=== PATIENT | female | born 1935 | race Caucasian/White ===

== ENCOUNTER 2018-12-18 15:17 | Inpatient (IN) ==
--- NOTE | 2018-12-18 16:05 | Diag Imaging Result Doc PS360 ---
EXAM: CT HEAD W/O CONTRAST 12/18/2018 HISTORY: head injury TECHNIQUE: This exam was performed using automated exposure control, adjustment of mA or kV according to patient size, and/or use of iterative reconstruction technique. COMMENT: There are patchy lucencies in the subcortical and periventricular white matter bilaterally. There is no evidence of mass effect, bleed, or abnormal extra-axial fluid collection. Compared to 11/24/2017 the appearance the brain has not changed significantly. There is blood throughout the right maxillary sinus with fractures of the floor of the orbit as well as the lateral posterior wall of the sinus. The zygomatic arch is intact. There is soft tissue swelling superficial to the right orbit. IMPRESSION: No evidence of acute intracranial disease. Chronic microvascular ischemic white matter changes. Fracture of the right orbital floor and lateral maxilla as described above. Electronically signed by Chi Dash 12/18/2018 4:03 PM
--- NOTE | 2018-12-18 16:07 | Diag Imaging Result Doc PS360 ---
EXAM: CT ORBIT W/O CONTRAST 12/18/2018 HISTORY: injury TECHNIQUE: This exam was performed using automated exposure control, adjustment of mA or kV according to patient size, and/or use of iterative reconstruction technique. COMMENT: There is some mucosal thickening in the ethmoid air cells particularly anteriorly on the right as well as the sphenoid sinuses particularly on the left. There is a comminuted fracture of the right orbital floor. There is a fracture of the medial wall of the right maxillary sinus just posterior to the nasal lacrimal duct. There is a fracture of the lateral wall of the sinus is well. The zygomatic arches are intact. The visualized portions of the mandible and pterygoid processes are intact. There is superficial soft tissue swelling over the right orbit but no evidence of intraorbital mass or fluid collection is present. The inferior rectus muscle is not apparently herniated into the fracture defect. IMPRESSION: Maxillary fractures on the right as described. Electronically signed by Chi Dash 12/18/2018 4:05 PM
--- NOTE | 2018-12-18 16:29 | PROVIDER DOCUMENTATION ---
HPI-EENT General - General Chief Complaint: Head Injury Stated Complaint: FALL Time Seen by Provider: 12/18/18 15:48 Source: family, EMS Allergies/Adverse Reactions: Patient Allergies Allergy/AdvReac Type Severity Reaction Status Date / Time No Known Allergies Allergy Verified 12/18/18 15:37 Home Medications: Home Medication List Medication Instructions Recorded Confirmed Last Taken Type Levothyroxine [Synthroid] 50 microgm PO DAILY 10/18/13 12/18/18 12/18/18 History Acetaminophen 500 mg PO TID 11/24/17 12/18/18 12/18/18 History Amlodipine Besylate [Norvasc] 5 mg PO DAILY 11/24/17 12/18/18 12/18/18 History Aripiprazole 2 mg PO QHS 11/24/17 12/18/18 12/17/18 History Aspirin [Aspir-Low] 81 mg PO DAILY 11/24/17 12/18/18 12/18/18 History Docusate Sodium [Colace] 200 mg PO DAILY 11/24/17 12/18/18 12/18/18 History Furosemide [Lasix] 40 mg PO DAILY 11/24/17 12/18/18 12/18/18 History Hydralazine [Apresoline] 50 mg PO TID 11/24/17 12/18/18 Unknown History Lorazepam [Ativan] 1 mg PO TID 11/24/17 12/18/18 12/18/18 History Meclizine HCl 25 mg PO DAILY 11/24/17 12/18/18 12/18/18 History Polyethylene Glycol 3350 17 gm PO DIRECTED 11/24/17 12/18/18 12/18/18 History Rivastigmine [Exelon 4.6MG/24Hrs] 1 patch .SEE ORDER DAILY 11/24/17 12/18/18 History Aripiprazole 1 tab PO QHS 12/18/18 12/18/18 12/17/18 History Divalproex Sodium [Divalproex 1 tab PO QAM 12/18/18 12/18/18 12/18/18 History Sodium ER] Divalproex Sodium [Divalproex 2 tab PO QHS 12/18/18 12/18/18 1 Day Ago History Sodium ER] ~12/17/18 Multivits,Ca,Minerals/Iron/FA 1 tab PO DAILY 12/18/18 12/18/18 12/18/18 History [Thera-M Tablet] Polyvinyl Alcohol [Artificial 2 drop OP TID 12/18/18 12/18/18 12/18/18 History Tears] Potassium Chloride [Klor-Con 10] 1 tab PO DAILY 12/18/18 12/18/18 12/18/18 History Primidone [Mysoline] 1 tab PO TID 12/18/18 12/18/18 12/18/18 History Sertraline [Zoloft] 1.5 tab PO QHS 12/18/18 12/18/18 12/17/18 History Solifenacin Succinate [Vesicare] 1 tab PO DAILY 12/18/18 12/18/18 12/18/18 History Venlafaxine HCl [Venlafaxine HCl 3 cap PO DAILY 12/18/18 12/18/18 12/18/18 History ER] - History of Present Illness-EENT General Nature of Presenting Problem: Pt states that she was attempting to get out of her wheelchair and fell forward , striking face. No LOC per EMS report. Pt from [facility]. Denies any other pain or injuries. Son is with pt and reports a history of dementia and states patient's mental status is at baseline. Presents with right orbital swelling. EENT Location: reports: eye (R) Onset/Duration: reports: this morning Timing: reports: still present Locality of Occurance: Home Similar Symptoms Previously?: Yes Review of Systems - Adult - REVIEW OF SYSTEMS - ADULT Constitutional: reports: no symptoms reported Eyes: reports: no symptoms reported Ears, Nose, Mouth & Throat: reports: see HPI, other (right eye pain/swelling/ bruising) Cardiovascular: reports: no symptoms reported Respiratory: reports: no symptoms reported Gastrointestinal: reports: no symptoms reported Genitourinary: reports: no symptoms reported Musculoskeletal: reports: no symptoms reported Integumentary: reports: no symptoms reported Neurological: reports: see HPI (head injury), loss of balance. denies: seizure , slurred speech, syncope Psychiatric: reports: no symptoms reported Endocrine: reports: no symptoms reported Hematologic/Lymphatic: reports: no symptoms reported Allergic/Immunologic: reports: no symptoms reported All Other Systems: Reviewed and Negative Past History - Adult - PAST MEDICAL HISTORY-ADULT Review of Records: reports: Old Records Reviewed, Nursing Assessment Review, Medications Reviewed, Social history reviewed & non-contributory. Major Childhood Illnesses: reports: denies history Cardiovascular: reports: HTN Respiratory: reports: COPD Gastrointestinal: reports: denies history Obstetrical/Gynecological: reports: denies history Genitourinary: reports: denies history Musculoskeletal: reports: denies history Neurological: reports: dementia Psychiatric: reports: depression Endocrine/Immune: reports: denies history Other Conditions: reports: denies history - PRIOR SURGERIES/PROCEDURES Surgical/Procedure History: reports: appendectomy - IMMUNIZATION STATUS Childhood Immunizations: See Nurse Assessment Flu Vaccine: See Nurse Assessment - FAMILY HISTORY Family History: reviewed, not pertinent Physical Exam- EENT - Physical Exam EENT Initial Vital Signs Reviewed: Yes General Appearance: alert, no apparent distress. negative: lethargic, slow to respond Eye Exam: bilateral eye: PERRL, EOMI (Doll's Eye manuever performed, no evidence of entrapment is noted.) Ear Exam: bilateral ear: auricle normal, canal normal, TM normal Nasal Exam: normal inspection Throat Exam: normal mouth inspection Neck: non-tender, supple, normal inspection Respiratory: chest non-tender, lungs clear, normal breath sounds, no respiratory distress, no accessory muscle use Cardiovascular: regular rate, rhythm, no gallop, no murmur Abdominal Exam: normal bowel sounds, non tender, soft Back Exam: normal inspection. negative: no vertebral tenderness, ecchymosis Extremity: non-tender, other (Pt arrived with cast in place to right arm. Son states she is being treated for a right wrist fracture that occurred 3 weeks ago.) Integumentary: normal color, warm/dry. negative: cyanosis, diaphoresis, jaundice, mottled, pallor Neurologic: grossly normal, no motor/sensory deficits, other (Pt not oriented to place or time, son states patient's mental status is baseline for her due to hx of dementia.) Psych/Mental Status: normal mood/affect, normal thought content, normal thought process, oriented x 3 Progress - PLAN OF CARE/RESULTS Progress/Plan/Lab Results: Vital Signs - 8 hr 12/18/18 15:24 12/18/18 19:30 12/18/18 19:59 Temperature 98.5 F 98.6 F Pulse Rate 93 H 95 H 83 Respiratory Rate 16 16 16 Blood Pressure 144/59 131/57 153/70 O2 Sat by Pulse Oximetry 91 L 70 L 95 Laboratory Results - last 24 hr 12/18/18 12/18/18 17:44 17:44 WBC 12.10 H RBC 4.79 Hgb 14.5 Hct 43.3 MCV 90.4 MCH 30.3 MCHC 33.5 RDW Std Deviation 12.3 Plt Count 132 MPV 11.6 H Immature Gran % (Auto) 0.2 Neut % (Auto) 78.6 H Lymph % (Auto) 13.0 L Crisp % (Auto) 7.9 Eos % (Auto) 0.1 Baso % (Auto) 0.2 Immature Gran # (Auto) 0.03 Neut # (Auto) 9.51 H Lymph # (Auto) 1.57 Crisp # (Auto) 0.96 H Eos # (Auto) 0.01 Baso # (Auto) 0.02 Sodium 139 Potassium 3.7 Chloride 97 L Carbon Dioxide 27 Anion Gap 15 BUN 16 Creatinine 0.7 Estimated GFR/1.73 m2 > 60 BUN/Creatinine Ratio 23 Glucose 118 H Calculated Osmolality 280 Calcium 9.7 Total Bilirubin 0.26 AST 19 ALT 14 Alkaline Phosphatase 78 Total Protein 6.9 Albumin 3.8 Globulin 3.1 Albumin/Globulin Ratio 1.2 Orders Category Date Time Status Neurological Check ORDERED Care 12/18/18 19:08 Active Saline Loc NOW Care 12/18/18 16:50 Active CERVICAL SPINE 2-VIEWS [RAD] Stat Exams 12/18/18 17:[address] HEAD W/O CONTRAST [CT] Stat Exams 12/18/18 15:[address] ORBIT W/O CONTRAST [CT] Stat Exams 12/18/18 15:31 Completed CBC WITH DIFF [HEME] Stat Lab 12/18/18 17:44 Completed COMPREHENSIVE METABOLIC PANEL [CHEM] Stat Lab 12/18/18 17:44 Completed 0.9% Sodium Chloride Inj [Ns] 1,000 ml Med 12/18/18 18:40 Active IV 100 mls/hr Acetaminophen [Tylenol] Med 12/18/18 18:24 Discontinued 650 mg PO NOW ONE CefTRIAXONE [Rocephin] 1 gm Med 12/18/18 18:42 Discontinued 0.9% Sodium Chloride Inj [Ns] 50 ml IV NOW Morphine Med 12/18/18 18:40 Discontinued 4 mg IV NOW ONE Ondansetron [Zofran] Med 12/18/18 18:40 Discontinued 4 mg IV NOW ONE Transfer/Admit Order [TRANSFER] Routine Transfer 12/18/18 20:[address] Rincon saw and evaluated pt and recommends ENT consult. Discussed case and conversation with Dr. Olmos with Dr. Rincon who recommends admitting pt for observation due to head injury. Will obtain labs prior to calling admitting physician. Admitting HPS paged at 1900. Spoke with Dr. Yousif who accepted admission. Pt in agreement with admission plan. Result Diagrams: 12/18/18 17:44 12/18/18 17:44 - REASSESSMENT Reassessment #1 Time Reassessed: 19:40 Status: unchanged (No mental status changes since previous assessment. However she does report that pain has improved since meds ordered by Dr. Rincon.) - XRAY 1 XRAY Study: C-Spine ([facility] [address] [place] [address], [address], [place] [address] Department of Imaging Patient: STEWART LUCIA Date: #: [id number] : 1935DM Status: REG [facility]#: [id number] Age/ Sex: 83/FRoom/Bed: Loc: ED Ordering Physician: Michael Villanueva Family Physician: Sahil Rey MD Reason for Procedure: fall Signed EXAM: CERVICAL SPINE 2-VIEWS 12/18/2018 HISTORY: fall TECHNIQUE: Four views COMMENT: There is generalized osteopenia. There is some disc space narrowing at the C4-5 C5-6 and C6-7 levels. There is no evidence of acute fracture or subluxation. IMPRESSION: Degenerative disc disease and osteoporosis. Electronically signed by Chi Dash 12/18/2018 5:15 PM [id number] Interpreting Physician: Chi Dash MD Dictated Date/Time: 12/18/18 2243 cc: Michael Villanueva; Sahil Rey MD) - CT/MRI 1 CT Study: Head ([facility] [address], [address], [place] [address] Department of Imaging Patient: STEWART LUCIA Date: 12/18/18MR# : [id number] : 1935DM Status: PRE ERAcct#: [id number] Age/Sex: 83/ FRoom/Bed: Loc: ED Ordering Physician: Yoseph Rincon MD Family Physician: Sahil Rey MD Reason for Procedure: head injury Signed EXAM : CT HEAD W/O CONTRAST 12/18/2018 HISTORY: head injury TECHNIQUE: This exam was performed using automated exposure control, adjustment of mA or kV according to patient size, and/or use of iterative reconstruction technique. COMMENT: There are patchy lucencies in the subcortical and periventricular white matter bilaterally. There is no evidence of mass effect, bleed, or abnormal extra-axial fluid collection. Compared to 11/24/2017 the appearance the brain has not changed significantly. There is blood throughout the right maxillary sinus with fractures of the floor of the orbit as well as the lateral posterior wall of the sinus. The zygomatic arch is intact. There is soft tissue swelling superficial to the right orbit. IMPRESSION: No evidence of acute intracranial disease. Chronic microvascular ischemic white matter changes. Fracture of the right orbital floor and lateral maxilla as described above. Electronically signed by Chi Dash 12/18/2018 4:03 PM 12/18/18 1607 Interpreting Physician: Chi Dash MD Dictated Date/Time: 1601 cc: Yoseph Rincon MD; Sahil Rey MD) 2 CT Study: Orbits ([facility] [address], [address], [place] [address] Department of Imaging Patient: STEWART LUCIA Date: 12/18/18# : [id number] : 1935DM Status: PRE ERAcct#: [id number] Age/Sex: 83/ FRoom/Bed: Loc: ED Ordering Physician: Yoseph Rincon MD Family Physician: Sahil Rey MD Reason for Procedure: injury Signed EXAM: CT ORBIT W/O CONTRAST 12/18/2018 HISTORY: injury TECHNIQUE: This exam was performed using automated exposure control, adjustment of mA or kV according to patient size, and/or use of iterative reconstruction technique. COMMENT: There is some mucosal thickening in the ethmoid air cells particularly anteriorly on the right as well as the sphenoid sinuses particularly on the left. There is a comminuted fracture of the right orbital floor. There is a fracture of the medial wall of the right maxillary sinus just posterior to the nasal lacrimal duct. There is a fracture of the lateral wall of the sinus is well. The zygomatic arches are intact. The visualized portions of the mandible and pterygoid processes are intact. There is superficial soft tissue swelling over the right orbit but no evidence of intraorbital mass or fluid collection is present. The inferior rectus muscle is not apparently herniated into the fracture defect. IMPRESSION: Maxillary fractures on the right as described. Electronically signed by Chi Dash 12/18/2018 4:05 PM 12/18/18 0787 Interpreting Physician: Chi Dash MD Dictated Date/Time: 1604 cc: Yoseph Rincon MD; Sahil Rey MD) - CONSULTS/PCP/HOSPITALIST Notification #1 *Consult/PCP/Hospitalist*: Dr. Olmos Time Discussed: 16:45 Consult Disposition: other (Md states that from an ENT standpoint, there is nothing to be done regarding facial fracture at this time.) #2 Consult: Dr. Yousif Time Discussed: 19:44 Consult Disposition: Admit ( has no recommendations at this time, states he will come see patient.) Departure - Departure Date of Disposition Decision: 12/18/18 Time of Disposition Decision: 19:44 DIAGNOSIS: Head injury Qualifiers: Encounter type: initial encounter Qualified Code(s): S09.90XA - Unspecified injury of head, initial encounter Orbital fracture Qualifiers: Encounter type: initial encounter Fracture type: closed Qualified Code(s): S02.80XA - Fracture of other specified skull and facial bones, unspecified side , initial encounter for closed fracture Fall Qualifiers: Encounter type: initial encounter Qualified Code(s): W19.XXXA - Unspecified fall, initial encounter Disposition: ADMITTED INPATIENT 09 Certified Medical Emergency: Emergent Condition: Stable Referrals and Follow-Ups: Sahil Rey MD [Primary Care Provider] - - Critical Care Note This patient required my direct & personal management of CC.: No Attestation - Physician/ MARLEN Attestation Patient care was provided by Advanced Practice Provider:: Yes Advanced Practice Provider:: Michael Villanueva Advanced Practice Provider documentation review:: The Mid-level provider documentation, treatment plan and medical decision making was reviewed by the physician who agrees with all treatment and medical decision making by the P. The physician spent face to face time with patient:: Yes (Dr. Rincon) Advanced Practice Provider documentation review:: Supervising physician onsite and consulted in the evaluation and care of this patient. The physician did have a face to face encounter with the patient.
--- NOTE | 2018-12-18 17:17 | Diag Imaging Result Doc PS360 ---
EXAM: CERVICAL SPINE 2-VIEWS 12/18/2018 HISTORY: fall TECHNIQUE: Four views COMMENT: There is generalized osteopenia. There is some disc space narrowing at the C4-5 C5-6 and C6-7 levels. There is no evidence of acute fracture or subluxation. IMPRESSION: Degenerative disc disease and osteoporosis. Electronically signed by Chi Dash 12/18/2018 5:15 PM
[2018-12-18 17:59] LABS: BASO# 0.02 X1000 (0.0-0.2); BASO% 0.2 % (0.0-0.8); EOS# 0.01 X1000 (0.0-0.7); EOS% 0.1 % (0.0-10.0); HEMATOCRIT 43.3 % (37.0-47.0); HEMOGLOBIN 14.5 g/dL (12.0-16.0); IMM GRAN# 0.03 X1000 (0.0-0.04); IMM GRAN% 0.2 % (0.0-0.5); LYMPH# 1.57 X1000 (1.2-3.4); MCH 30.3 PG (27-31); MCHC 33.5 g/dL (33-37); MCV 90.4 FL (81-99); MONO# 0.96 X1000 (0.11-0.59); MONO% 7.9 % (1.7-9.3); MPV 11.6 FL (7.4-10.4); NEUT# 9.51 X1000 (1.4-6.5); NEUT% 78.6 % (42.2-75.2); PLT 132 X1000 (130-400); RBC 4.79 XMIL (4.2-5.4); RDW 12.3 % (11.5-14.5)
[2018-12-18] MEDS ORDERED: TYLENOL PO ONE (18:24)
[2018-12-18] MEDS ORDERED: NS 1,000 ML IV ONE (18:40)
[2018-12-18] MEDS ORDERED: ZOFRAN IV ONE (18:40)
[2018-12-18] MEDS ORDERED: MORPHINE IV ONE (18:40)
[2018-12-18] MEDS ORDERED: ROCEPHIN 1 GM in NS 50 ML IV ONE (18:42)
[2018-12-18 18:47] LABS: AGAP 15; ALB/GLOB RATIO 1.2; ALBUMIN 3.8 g/dL (3.5-5.0); ALKALINE PHOSPHATASE 78 U/L (32-104); BUN 16 mg/dL (8-22); CALCIUM 9.7 mg/dL (8.8-10.2); CHLORIDE 97 mmol/L (98-107); COSMO 280; CREATININE 0.7 mg/dL (0.5-0.9); ESTIMATED GFR > 60; GLUCOSE 118 mg/dL (70-104); GOT 19 U/L (10-30); GPT 14 U/L (10-36); POTASSIUM 3.7 mmol/L (3.5-5.1); SODIUM 139 mmol/L (136-145); TCO2 27 mmol/L (25-35); TOTAL BILIRUBIN 0.26 mg/dL (0.20-1.00); TOTAL PROTEIN 6.9 g/dL (6.3-8.3)
[2018-12-18] MEDS: NS 1,000 ML IV SCH (23:41)
[2018-12-19] MEDS: DEPAKOTE ER PO SCH ×3 (00:06→21:13)
--- NOTE | 2018-12-19 05:35 | HISTORY AND PHYSICAL ---
PHYSICIAN: Patient of [facility]. REASON FOR ADMISSION: Fall with subsequent head injury. HISTORY OF PRESENT ILLNESS: Ms. Irene Curiel is an 83-year-old woman with a past medical history of dementia, pulmonary fibrosis, hypertension, who apparently got out of her wheelchair, missed her footing and fell face forward and landed on her head. There was no reported loss of consciousness per her records. The patient is an extremely poor historian for obvious reasons due to underlying dementia but she will follow commands and answer very basic questions. The patient has no recollection of events leading to or after the fall. She denies any pain at this point in time. She denies any visual loss in her right eye. She denies any headache, neck problems. She denies any weakness in either of extremities. That is pretty much the extent of the history I could get from this patient. REVIEW OF SYSTEMS: Limited for obvious reasons. ALLERGIES: No known allergies. HOME MEDICATIONS: Patient is on Abilify 3 mg at bedtime, divalproex 1000 mg at night and Zoloft 75 mg at night, Tylenol 500 mg t.i.d., Norvasc 5 mg daily, aspirin 81 mg daily, divalproex 500 mg in the morning, Colace 200 mg daily, Lasix 40 mg daily, hydralazine 50 mg t.i.d., Synthroid 50 mcg daily, Ativan 1 mg t.i.d., meclizine 25 mg daily, multivitamins tablets once a day, MiraLax 17 g daily, Artificial Tears 2 drops t.i.d., Klor-Con 10 mEq daily, primidone 50 mg t.i.d., Exelon patch 1 daily, VESIcare 5 mg tablet daily, venlafaxine 225 mg daily. SURGICAL HISTORY: Appendectomy was noted in the chart. SOCIAL HISTORY: Never smoked or drank per her records. Resident of [facility]. FAMILY HISTORY: Unable to obtain. LABORTATORIES: On examination, white count is 12,000, hemoglobin and hematocrit 14 and 43, platelets 132, neutrophils 78. Glucose 118. BUN is 16. Creatinine 0.7. CT cervical spine: Degenerative disk disease and osteoporosis noted. Head CT: No evidence of intracranial disease, chronic microvascular ischemic minor changes noted, fracture of the right orbital floor and lateral maxilla as described above which involves the right maxillary sinus with blood noted in the right maxillary sinus. The fracture also extends into the medial wall of the right maxillary sinus. PHYSICAL EXAMINATION: VITAL SIGNS: Blood pressure 153/70, heart rate 83, respirations 16, temperature is 98.6. She is 95% on 3 L. GENERAL: She is an elderly woman who has a flat affect, not in acute distress. She is oriented to person only. HEENT: Head: Patient has noticeable infraorbital ecchymosis. Extraocular muscles are intact in all axis. There is no evidence of nasal or ear drainage. Pupillary reflexes are intact bilaterally. Oropharyngeal exam is intact. Patient has a persistent resting mouth tremor. NECK: No thyromegaly. No JVD noted. No bruit appreciated. CHEST: Clear when auscultated with good entry in both lung diaz. CARDIOVASCULAR: First and second heart sounds heard. No gallops, murmurs or rubs. Rhythm is regular. ABDOMEN: Full, soft. No tenderness or megaly. Bowel sounds are hypoactive. RECTAL: Exam deferred at this time. EXTREMITIES: The patient has a fine resting tremor of her right hand. There are bruises on the dorsum of both hands more on the left than the right. She has 1-plus pulses distal in lower extremities symmetrical. No edema. No peripheral cyanosis. NEUROLOGICAL: No gross focal deficits appreciated. SKIN: See above, otherwise intact. MUSCULAR: Exam is grossly unremarkable. ASSESSMENT: 1. Right periorbital and medial maxillary bone fractures. 2. Alzheimer's dementia. 3. Hypertension. 4. Osteoporosis. 5. Hypothyroidism. PLAN: Patient will be admitted overnight for observation. Neuro checks will be done per our protocol. If patient is stable, may consider discharging patient. My biggest concern with this patient actually is that she is on multiple sedating medications. She is on 2 SSRIs. She is on Ativan. She is on anticholinergics. She is on atypical antipsychotics. She is on antiseizure medication just to mention a few. I strongly believe this may be having an impact on this patient's overall presentation. I do strongly recommend tapering or lowering the doses of some of these medications as these may impact her risk for falls. I forgot to mention in my exam, the patient did have a cast on her right forearm which suggests that she has had previous falls and unless her medication regimen is modified the risk of her falling will increase going forward. Dr. Olmos was contacted and notified about this patient's situation and from a surgical standpoint has nothing to offer the patient and will probably see the patient tomorrow morning. cc: Hugo Yousif MD
[2018-12-19] MEDS: MORPHINE IV PRN ×3 (06:56→17:23)
[2018-12-19] MEDS: SYNTHROID PO SCH (07:06)
[2018-12-19 08:35] LABS: BASO# 0.02 X1000 (0.0-0.2); BASO% 0.2 % (0.0-0.8); EOS# 0.07 X1000 (0.0-0.7); EOS% 0.7 % (0.0-10.0); HEMATOCRIT 39.5 % (37.0-47.0); IMM GRAN# 0.04 X1000 (0.0-0.04); IMM GRAN% 0.4 % (0.0-0.5); LYMPH% 15.8 % (20.5-51.1); MCH 30.9 PG (27-31); MCHC 32.9 g/dL (33-37); MCV 93.8 FL (81-99); MONO# 1.04 X1000 (0.11-0.59); MONO% 10.3 % (1.7-9.3); MPV 11.3 FL (7.4-10.4); NEUT# 7.34 X1000 (1.4-6.5); NEUT% 72.6 % (42.2-75.2); PLT 109 X1000 (130-400); RBC 4.21 XMIL (4.2-5.4); RDW 12.3 % (11.5-14.5); WBC 10.11 X1000 (4.8-10.8)
[2018-12-19 08:47] LABS: AGAP 10; BUN 12 mg/dL (8-22); CHLORIDE 105 mmol/L (98-107); COSMO 281; CREATININE 0.5 mg/dL (0.5-0.9); ESTIMATED GFR > 60; GLUCOSE 105 mg/dL (70-104); POTASSIUM 3.7 mmol/L (3.5-5.1); SODIUM 141 mmol/L (136-145); TCO2 26 mmol/L (25-35)
[2018-12-19] MEDS: NS 1,000 ML IV SCH (10:24)
[2018-12-19] MEDS: ATIVAN PO SCH ×2 (10:25→14:39)
[2018-12-19] MEDS: COLACE PO SCH (10:25)
[2018-12-19] MEDS: MYSOLINE PO SCH ×3 (10:25→21:13)
[2018-12-19] MEDS: NORCO-5 PO PRN ×3 (10:25→18:35)
[2018-12-19] MEDS: APRESOLINE PO SCH ×3 (10:25→21:13)
[2018-12-19] MEDS: NORVASC PO SCH (10:25)
[2018-12-19] MEDS: TEARISOL OPH SOLUTION BOTH EYES SCH ×3 (10:26→21:14)
[2018-12-19] MEDS: ZOFRAN IV PRN ×2 (11:58→17:23)
--- NOTE | 2018-12-19 13:23 | PROGRESS NOTE ---
DATE: 12/19/2018 SUBJECTIVE: The patient is resting in bed. OBJECTIVE: Vital Signs: Temperature 98.7 degrees, pulse 83, respiratory rate 16, blood pressure is 133/50, and oxygen saturation is 98%. HEENT: Patient does have extensive area of right-sided periorbital hematoma. Cardiovascular: S1, S2. Respiratory: He has evidence of good air entry bilaterally. Abdomen: Soft, nontender. No masses. Extremities: No evidence of edema. Central nervous system: No obvious focal deficit noted. LABORATORY: WBCs 10.11, hematocrit 39.5 with a platelet count of 109,000. Sodium is 144, potassium is 3.7, chloride 25, bicarb is 26, BUN is 12, and creatinine 5. ASSESSMENT AND PLAN: 1. Right periorbital as well as maxillary bone fractures. The patient will require maxillofacial surgery evaluation. 2. Alzheimer's dementia. Supportive care. 3. Hypertension. Optimize blood pressure control. 4. Hypothyroidism. Continue levothyroxine. cc: Lan Cano MD MTDD
--- NOTE | 2018-12-19 18:36 | CONSULTATION ---
DATE OF CONSULTATION: 12/19/2018 HISTORY OF PRESENT ILLNESS: An 83-year-old female who is fdc-bound. She has dementia. She was admitted from the ER last night after a fall. A CT scan of the facial bones reveals nondisplaced fractures of the orbital floor and the anterior and medial maxillary wall. She does have blood in the sinus. She is admitted for observation. PHYSICAL EXAMINATION: There is ecchymosis and edema around the right eye. The zygomatic arch is intact. The frontal zygomatic suture is intact. The infraorbital rim is intact. DIAGNOSTIC DATA: CT scan to my review: Nondisplaced fractures as described in report. IMPRESSION AND PLAN: Facial fracture. Will need no from an ear, nose and throat standpoint. This should heal without sequela. Depending on her visual issues, perhaps ophthalmology evaluation could be of some benefit, but for now needs no surgery on the facial buttress skeleton. cc: Bill Olmos MD
[2018-12-19] MEDS: ROCEPHIN 1 GM in NS 50 ML IV SCH (18:43)
[2018-12-20] MEDS: ATIVAN PO SCH ×4 (00:55→21:26)
[2018-12-20] MEDS: SYNTHROID PO SCH (06:14)
[2018-12-20] MEDS: MORPHINE IV PRN (06:15)
[2018-12-20] MEDS: DEPAKOTE ER PO SCH ×2 (10:33→21:25)
[2018-12-20] MEDS: MYSOLINE PO SCH ×3 (10:33→21:25)
[2018-12-20] MEDS: APRESOLINE PO SCH ×3 (10:33→21:25)
[2018-12-20] MEDS: NORVASC PO SCH (10:33)
[2018-12-20] MEDS: COLACE PO SCH (10:33)
[2018-12-20] MEDS ORDERED: BLISTEX MEDICATED BERRY LIP BALM TOP PRN (14:31)
[2018-12-20] MEDS: TEARISOL OPH SOLUTION BOTH EYES SCH ×3 (15:30→21:25)
[2018-12-20] MEDS: ROCEPHIN 1 GM in NS 50 ML IV SCH (18:01)
[2018-12-20] MEDS: TYLENOL ARTHRITIS PO SCH (18:07)
--- NOTE | 2018-12-20 19:29 | PROGRESS NOTE ---
DATE: 12/20/2018 SUBJECTIVE: The patient is resting in bed. OBJECTIVE: Vital signs: Temperature is 98 degrees, pulse is 86, respirations 17, blood pressure is 116/56, oxygen saturation is 100%. HEENT: Patient is atraumatic, normocephalic. Cardiovascular: S1, S2. Respiratory: Patient does have a large area of right periorbital ecchymosis. Has evidence of good air entry bilaterally. Abdomen: Soft, nontender. No masses felt. Extremities: Patient does have a cast in the right upper extremity. Central nervous system: No obvious focal deficit noted. LABS: None. ASSESSMENT AND PLAN: 1. Right periorbital as well as maxillary bone fractures. Patient evaluated by Dr. Bill Olmos and who felt from an ENT standpoint no intervention was necessary. Patient will still need ophthalmology evaluation in light of the fracture involving the orbital floor. 2. Alzheimer dementia. Supportive care. 3. Hypertension, optimize blood pressure control. 4. Hypothyroidism. Continue levothyroxine. cc: Lan Cano MD
--- NOTE | 2018-12-20 19:45 | PROGRESS NOTE ---
DATE: 12/20/2018 ADDENDUM: I did attempt to get the patient transferred over to [facility] because of the orbital floor fracture, and have not been able to get the transfer center. Will continue to attempt to reach [facility] to get this patient transferred over. cc: Lan Cano MD
[2018-12-21] MEDS: SYNTHROID PO SCH (06:23)
[2018-12-21] MEDS: MIRALAX PO SCH (08:43)
[2018-12-21] MEDS: APRESOLINE PO SCH ×3 (08:43→21:19)
[2018-12-21] MEDS: DEPAKOTE ER PO SCH ×2 (08:43→21:19)
[2018-12-21] MEDS: NORVASC PO SCH (08:43)
[2018-12-21] MEDS: MYSOLINE PO SCH ×3 (08:44→21:19)
[2018-12-21] MEDS: ATIVAN PO SCH ×3 (08:44→21:19)
[2018-12-21] MEDS: TYLENOL ARTHRITIS PO SCH ×3 (08:44→18:03)
[2018-12-21] MEDS: COLACE PO SCH (08:44)
[2018-12-21] MEDS: TEARISOL OPH SOLUTION BOTH EYES SCH ×3 (08:52→21:19)
--- NOTE | 2018-12-21 14:38 | PROGRESS NOTE ---
DATE: 12/21/2018 SUBJECTIVE: This morning, Ms. Curiel referred to be doing fairly okay. Denies any complaints. OBJECTIVE: Vital signs: Blood pressure is 105/45, pulse 69, respirations 16, temperature 97.9. General: Ms. Curiel is an 83-year-old female. She is in bed, no distress. Mucosa is pink and moist. Anicteric and acyanotic. Neck is supple. Chest was clear to auscultation. Cardiovascular: Regular rate and rhythm. There is no murmur, no rub, no gallop. Abdomen is soft. Extremities: No pedal edema. 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 Kind of slow to react, but for the most part, she seems to be responding appropriately. She has a cast on the right forearm. The right neck also has traumatic subcutaneous bruises, and the right eye has conjunctival hemorrhages, but the globe seems to be moving very appropriately, and she was able to tell me 1 finger or 2 fingers when I examined her. DIAGNOSTIC DATA: There is no immediate lab work since 12/19/2018. Review of her imaging studies are CT scan of the head which is unremarkable except for chronic microvascular ischemic changes. An orbit CT scan showed maxillary fractures on the right. This has been evaluated by Dr. Olmos (ENT), and no intervention needed. CURRENT MEDICATIONS: The patient's current medications have all been reviewed. ASSESSMENT: 1. Status post mechanical fall resulting in right maxillary bone fractures associated with periorbital swelling. The patient has been evaluated by Dr. Olmos. No ENT intervention at this point he also recommend possible Ophthalmology evaluation. The patient , however, has normal ocular movement and has normal vision. I think she does have subconjunctival hemorrhages which will eventually resolve on its own. We will advise that she follows up with ophthalmology at a later date. I do not see any acute eye problems. 2. Subconjunctival traumatic hemorrhages. The patient has normal vision and ocular movement. I would advise she follow up with ophthalmology as outpatient. 3. Alzheimer's dementia. We will continue supportive care. 4. Hypothyroidism. The patient is on levothyroxine. 5. Hypertension. Stable. 6. Essential tremor noted. 7. Polypharmacy. The patient was on a lot of psychotropic medications at the shelter including Abilify, venlafaxine, sertraline, primidone, divalproex acid, meclizine, lorazepam, all of which could have potentially caused dizziness for her to fall. All of these have been withheld except primidone for the essential tremor and her blood pressure medications. PLAN: In general, Ms. Curiel seems to be medically stable. We are going to continue with physical therapy and hopefully can get her back to her shelter on Sunday. We will also advise that she follow up with ophthalmology on an outpatient basis. She does not seem to have any acute emergency in the eye. She is able to move the globe, and she does have normal vision, able to identify my fingers and how many I put up for her to recognize. cc: Tony Sampson MD MTDD
[2018-12-21] MEDS: ROCEPHIN 1 GM in NS 50 ML IV SCH (18:03)
[2018-12-22] MEDS: SYNTHROID PO SCH (07:36)
[2018-12-22] MEDS: APRESOLINE PO SCH ×3 (10:21→20:44)
[2018-12-22] MEDS: NORVASC PO SCH (10:21)
[2018-12-22] MEDS: COLACE PO SCH (10:21)
[2018-12-22] MEDS: ATIVAN PO SCH ×3 (10:22→20:44)
[2018-12-22] MEDS: TYLENOL ARTHRITIS PO SCH ×3 (10:22→20:44)
[2018-12-22] MEDS: MYSOLINE PO SCH ×3 (10:22→20:44)
[2018-12-22] MEDS: DEPAKOTE ER PO SCH ×2 (10:22→20:44)
[2018-12-22] MEDS: TEARISOL OPH SOLUTION BOTH EYES SCH ×3 (10:22→20:45)
--- NOTE | 2018-12-22 10:25 | PROGRESS NOTE ---
DATE: 12/22/2018 SUBJECTIVE: This morning, Ms. Curiel referred to be doing fairly okay, denies any acute complaints. Ms. Curiel, however, reiterated that she does not want to go back to the long-term. OBJECTIVE: Vital signs: Blood pressure is 131/55, pulse is 81, respirations 14, temperature is 98.0 degrees. Patient was saturating 98% on nasal cannula. General: Ms. Curiel is an 83-year-old female. She was in bed. She is not in any cardiopulmonary distress. HEENT: Mucosa is pink and moist. Anicteric. Acyanotic. The right eye has some conjunctival hemorrhages, but the globe seems to be moving very appropriately. She is able to count my fingers from that eye. Neck: Supple. Chest: Good air entry bilateral. Did not hear any rhonchi or any crepitations. Cardiovascular: Regular rate and rhythm. No murmurs, no rubs, no gallops. Gastrointestinal: Abdomen is soft. Bowel sounds are present. There was no hepatosplenomegaly. Central nervous system: Patient is awake. Very responsive to interrogation. Seems to be oriented to person and to place. Could not tell me the date. Skin: The patient continues to have some bruises around the right neck. LABORATORY DATA: None for today. ASSESSMENT: 1. Status post mechanical fall, resulting in right maxillary bone fractures associated with periorbital swelling. The patient has been evaluated by ENT (Dr. Olmos). No ENT intervention needed at this time. The patient will also need to be evaluated by Ophthalmology, hopefully on an outpatient basis. 2. Subconjunctival hemorrhage, stable. The patient has normal vision and normal ocular movements. 3. Alzheimer dementia. Patient at long-term [facility] at the dementia unit. 4. Hypothyroidism. We will continue with the levothyroxine. 5. Hypertension, stable. 6. Essential tremor. Patient is on primidone. 7. Polypharmacy. Psychotropic medications have been on hold. PLAN: In general, Ms. Curiel seems to be fairly stable. Apparently she fell from her wheelchair in the long-term. It is concerning that Ms. Curiel referred that she does not want to go back to the long-term. We will get Physical Therapy to work with her, and we will get a social work administrator to look into this. cc: Tony Sampson MD
[2018-12-22] MEDS: ROCEPHIN 1 GM in NS 50 ML IV SCH ×2 (17:41→20:09)
[2018-12-23] MEDS: SYNTHROID PO SCH (06:11)
--- NOTE | 2018-12-23 07:04 | Diag Imaging Result Doc PS360 ---
EXAM: CHEST-PORTABLE 12/23/2018 HISTORY: dyspnea TECHNIQUE: AP portable at 0541 COMMENT: Compared to 03/18/2018 there is opacity laterally in the right base which was not previously present. There is chronic opacity in the lingula which may be due to fibrosis. IMPRESSION: Right lower lobe pneumonia. Electronically signed by Chi Dash 12/23/2018 7:01 AM
[2018-12-23 07:44] LABS: HEMATOCRIT 35.9 % (37.0-47.0); HEMOGLOBIN 11.6 g/dL (12.0-16.0); MCH 30.4 PG (27-31); MCHC 32.3 g/dL (33-37); MPV 10.8 FL (7.4-10.4); RBC 3.82 XMIL (4.2-5.4); RDW 12.5 % (11.5-14.5); WBC 6.09 X1000 (4.8-10.8)
[2018-12-23 07:58] LABS: AGAP 10; BUN 12 mg/dL (8-22); CALCIUM 9.3 mg/dL (8.8-10.2); CHLORIDE 101 mmol/L (98-107); COSMO 282; CREATININE 0.5 mg/dL (0.5-0.9); ESTIMATED GFR > 60; GLUCOSE 91 mg/dL (70-104); POTASSIUM 4.1 mmol/L (3.5-5.1); SODIUM 142 mmol/L (136-145); TCO2 31 mmol/L (25-35)
[2018-12-23] MEDS: MIRALAX PO SCH (09:17)
[2018-12-23] MEDS: MYSOLINE PO SCH ×2 (09:17→15:03)
[2018-12-23] MEDS: TYLENOL ARTHRITIS PO SCH ×3 (09:17→16:15)
[2018-12-23] MEDS: COLACE PO SCH (09:17)
[2018-12-23] MEDS: APRESOLINE PO SCH ×2 (09:18→15:03)
[2018-12-23] MEDS: DEPAKOTE ER PO SCH (09:19)
[2018-12-23] MEDS: NORVASC PO SCH (09:19)
[2018-12-23] MEDS: ATIVAN PO SCH ×2 (09:19→15:02)
[2018-12-23] MEDS: TEARISOL OPH SOLUTION BOTH EYES SCH ×2 (09:20→15:03)
[2018-12-23] MEDS ORDERED: ZYVOX PO SCH (12:00)
--- NOTE | 2018-12-23 14:42 | DISCHARGE SUMMARY ---
ADMISSION DATE: 12/18/2018 DISCHARGE DATE: 12/23/2018 CONSULTATION: Paul Wei -ENT. DISCHARGE DIAGNOSES: 1. Status post mechanical fall resulting in right maxillary bone fractures associated with periorbital swelling. She has been evaluated by Dr. Olmos from ENT. No ENT intervention needed. She will also need to be evaluated by Ophthalmology as an outpatient basis. 2. Subconjunctival hemorrhage, stable. The patient has normal vision and normal ocular movements. 3. Alzheimer's dementia. The patient is a long-term resident at [facility] and will be discharged back to the dementia unit. 4. Hypothyroidism. Continue levothyroxine. 5. Hypertension. Stable. 6. Essential tremor. Continue primidone. 7. Polypharmacy. Psychotropic medications have been on hold. HOSPITAL COURSE: Briefly, Ms. Curiel is an 83-year-old female who is a long-term care resident at the dementia unit at [facility]. She carries a past medical history of Alzheimer's dementia, pulmonary fibrosis, hypertension, who got out of her wheelchair missed her footing, fell face forward and landed on her hand. No reported loss of consciousness. Imaging in the ED showed a right periorbital and medial maxillary bone fractures. She was admitted to the hospital initially for observation. She was evaluated by Dr. Olmos with ENT, who felt she did not need any ENT service from their standpoint, and that she would heal on her own and depending on visual issues have her followup with Ophthalmology for evaluation. She has had a stable hospital course and will be discharged back to [facility]. VITAL SIGNS: Temperature is 98.1 degrees, heart rate 94, respirations 18, blood pressure 143/49, O2 is 94% on 2 L nasal cannula. DISCHARGE DIET: Healthy heart with chopped meats. DISCHARGE MEDICATIONS: 1. Aripiprazole 1Tab p.o. at bedtime. 2. Depakote ER 1000 mg p.o. at bedtime. 3. Acetaminophen 500 mg p.o. t.i.d. 4. Norvasc 5 mg p.o. daily. 5. Aspirin 81 mg p.o. daily. 6. Depakote ER 500 mg p.o. every a.m. 7. Colace 200 mg p.o. daily. 8. Apresoline 50 mg p.o. t.i.d. 9. Synthroid 50 mcg p.o. daily. 10. Ativan 1 mg p.o. t.i.d. 11. Thera M tablet 1 tab p.o. daily. 12. MiraLAX 17 gram p.o. as directed. 13. Artificial Tears 2 drops ophthalmic t.i.d. 14. Primidone 50 mg tablet 1 tab p.o. t.i.d. 15. Exelon patch 4.6 mg per 24 hours 1 patch daily per order. 16. VESIcare 5 mg p.o. daily. 17. Zyvox 600 mg p.o. every 12 hours for 7 more days. FOLLOWUP: Ms. Curiel is being discharged back to [facility]-term [facility] in the dementia unit. She is to take all medications as prescribed. She can return to the ED or call 911 for any worsening of symptoms. Dictated by JEZ Davison for Tony Sampson MD cc: Tony Sampson MD I have seen and examined Ms Curiel today. I have also spoken to his son about her discharge today. I have reviewed and reconciled her home medications. Patient to be discharged to assisted. She is encouraged to follow up with Dr Olmos and an production planning supervisor. Son has been notified about that. I agree with the above discharge summary MTDD
[2018-12-23 15:44] VITALS: BP 148/56
== END 2018-12-23 18:30 | DRG 158 ==
LOC: SUPCPDRO → ED 15:17 → SUATTDRO 21:54 → EDIPHOLD 21:54 → 3N 22:05
PROVIDERS: ATTEND Internal Medicine
CPT/HCPCS: 70450; 70480; 71010; 71045; 72040; 80048; 80053; 85025; 85027; 96361; 96365; 96375; 97110; 97162; 97530; 99285; A9270; J0696; J2270; J2405; J7030